=== PATIENT | male | born 1970 | race Caucasian/White ===

== ENCOUNTER 2022-05-12 11:49 | Outpatient (REF) | payer OTHER, SELFPAY ==
[2022-05-12 14:37] LABS: Appearance Urine Clear; Color Urine Yellow; Glucose Urine UA Negative (Negative); Leukocyte Esterase Urine Negative (Negative); Nitrite Urine Negative (Negative); PH 5.5 (5.0-9.0); Urine Blood Negative (Negative); Urine Ketones Negative (Negative); Urine Protein Negative (Neg-Trace)
[2022-05-12 14:40] LABS: Bacteria Urine None Seen (None Seen); Hyaline Casts Urine 0-2 /LPF (0-2); RBC Urine 0-2 /HPF (0-2); Squamous Epithelial Cell Urine 0-2 /HPF (0-2); WBC Urine 0-5 /HPF (0-5)
[2022-05-12 15:30] LABS: Prostate Specific Antigen 0.45 ng/mL (<0.05-4.0)
== END 2022-05-12 11:50 | disposition home or self-care (01) ==
LOC: HO.MANLDS 11:49
PROVIDERS: Visit Provider Physician Assistant
DX: N40.0 Benign prostatic hyperplasia without lower urinary tract symptoms (principal); R10.32 Left lower quadrant pain; Z12.5 Encounter for screening for malignant neoplasm of prostate
CPT/HCPCS: 36415; 81001; 84153; 87086

== ENCOUNTER 2024-02-28 18:18 | Outpatient (REF) | payer OTHER, SELFPAY | END 2024-02-28 18:19 | disposition home or self-care (01) | LOC: HO.MANLNP 18:18 | PROVIDERS: Visit Provider Physician Assistant | DX: Z13.89 Encounter for screening for other disorder (principal) | CPT/HCPCS: 87070; 87205 ==

== ENCOUNTER 2024-10-17 16:17 | Outpatient (REF) | payer OTHER, SELFPAY ==
--- OUTSIDE RECORDS SUMMARY | 2024-10-17 17:50 | XMS_ITS | Clinical Summary ---
Author Organization [facility] Address [address] [place] [address] Care Team Providers Care Business Transformation Analyst Name Role Phone Unavailable Primary Care Provider Unavailabl e Source Comments PLEASE NOTE, if this patient is a minor, it may be UNLAWFUL to discuss sensitive information that is contained in these records (such as FAMILY PLANNING, MENTAL HEALTH or SUBSTANCE ABUSE) with the minor patient's parent or other person without the patient's specific authorization.[facility] Allergies No known active allergies Medications atorvastatin (LIPITOR) 20 mg tablet 09/13/2023 Active losartan (COZAAR) 50 mg tablet 08/22/2023 Active neomycin-polymyx in B-dexameth (POLYDEX) 3.5 mg/g-10,000 unit/g-0.1 % ophthalmic ointment APPLY A SMALL RIBBON TO THE RIGHT LOWER LID THREE TIMES DAILY FOR 10 DAYS 04/16/2024 Active esomeprazole magnesium (NEXIUM) [address] capsule take 1 capsule by mouth once daily ON AN EMPTY STOMACH Active flu vacc [id number] 6mos up,PF, 60 mcg (15 mcg x 4)/0.5 mL syrg Fluarix Quad [id number] (PF) 60 mcg (15 mcg x 4)/0.5 mL IM syringe Active amoxicillin-pot clavulanate (AUGMENTIN) 875-125 mg per tabletIndication s:Skin infection Take 1 Tablet by mouth 2 (two) times daily 20 Tablet 05/04/2024 Active Immunizations Immunization Administration Dates Next Due Moderna COVID-19 Vaccine, re d cap blue label, 12+ Primary Series 11/11/2020,10/14/2020 Social History Tobacco Use Types Packs/Day Years Used Date Smoking Tobacco: Never Smokeless Tobacco: Never Tobacco Cessation:Counseling Given: Not Answered Social Connections Answer Date Recorded Connectedness 0 03/22/2024 Financial Resource Strain Answer Date R ecorded Financial Resource Strain 0 2023 Stress Answer Date Recorded Stress 0 11/13/2023 Physical Activity Answer Date Recorded Physical Activity 0 11/13/2023 Food Insecurity Answer Date Recorded Food 0 04/05/2024 Transportation Needs Answer Date Record ed Transportation 0 11/13/2023 Housing Stability Answer Date Recorded Housing 0 11/13/2023 Safety and Environment Answer Date Dajuan rded Safety 0 11/13/2023 Utilities Answer Date Recorded Utilities 0 11/13/2023 Employment Answer Date Recorded Stress 0 03/22/2024 Sex and Gender Information Value Date Recorded Sex Assigned at Male 05/04/2024 6:34 AM PDT Legal Sex Male 8:50 AM PDT Gender Identity Male 05/04/2024 6:34 AM PDT Sexual Orientation Straight 05/04/2024 6: 34 AM PDT Last Filed Vital Signs Vital Sign Reading Time Taken Comments Blood Pressure 129/86 05/04/2024 9:48 AM EDT Pulse 76 05/04/2024 9:48 AM EDT Temperature 37 ??C (98.6 ??F) 05/04/2024 9:48 AM EDT Respiratory Rate 16 05/04/2024 9:48 AM EDT Oxygen Saturation 94% 05/04/2024 9:48 AM EDT Inhaled Oxygen Concentration - - Weight - - Height - - Body Mass Index - - Plan of Treatment Health Maintenance Due Date Last Done Comments Anxiety Screening 1968 Hepatitis C Screening 1968 HIV Screening 1983 Imm-Hepatitis B (1 of 3 - 19 + 3-dose series) 1987 CT Colonography 2013 Colonoscopy 2013 Colorectal Cancer Screening 2013 FIT/gFOBT 2013 Fecal DNA 2013 Flexible Sigmoidoscopy 2013 Imm-DTaP/Tdap/Td (1 - Tdap) 05/02/2019 05/01/2019 [id number] ( season) 2024 04/16/2022, 06/23/2021, 11/11/2020, Additional history exists Imm-Influenza (#1) 2024 04/16/2022, 1 08/24/2020, 04/12/2020, Additional history exists Alcohol and Drug Screen 07/11/2024 Depression Annual Screen 07/11/2024 Lipid Screening 08/29/2024 08/29/2023 Hypertension Screening (#1) 05/04/2025 Tobacco Screening 05/04/2025 05/04/2024 Diabetes Screening 08/29/2026 08/29/2023, 0 01/27/2023, 01/27/2023 Imm-Zoster, Recombinant Completed 07/23/2022, 04/16 Insurance [facility] ([facility]) Member Subscriber Plan / Payer (Ef fective 2018-Present) Name:Mauricio Sargent Relation to Subscriber:Self Name:Mauricio Sargent Payer ID:[id number] Group ID:Not on file Type:Indemnity Address: [address] [place], [place] [id number]
--- OUTSIDE RECORDS SUMMARY | 2024-10-17 17:50 | XMS_ITS | Data Portability ---
Author Organization [facility], Home Service Address [address] [place] [address] Assessment No assessment recorded. Plan of Treatment Reminders Order Date Submit Date Provider Last Modified By Organization Details Last Modified Time Details Appointments FOLLOW UP 15 2024 04:00P GLO MONTEMAYOR Not available Not available Not available Lab CMP, serum or plasma 2024 025 [facility], [address] [place] [address], [id number], 10/17/2024 16:24:43 hemoglobi n A1c, QN, blood 2024 025 [facility], [address] [place] [address], [id number], 10/17/2024 16:24:44 CBC w/ auto diff 2024 025 [facility], [address] [place] [address], [id number], 10/17/2024 16:24:43 PSA, serum or plasma 2024 025 [facility], [address] [place] [address], [id number], 10/17/2024 16:24:43 urinalysi s, dipstick 2024 025 [facility], [address] [facility] [place], [address], 10/17/2024 16:23:30 urinalysi s complete, reflex culture 2024 025 [email or web address] [facility], [address] [place] [address], [id number], 10/17/2024 15:54:08 culture, skin 2023 024 [facility], [address] [place] [address], [id number], 03/02/2024 08:01:55 urinalysi s complete, reflex culture 2021 022 [facility], [address] [place] [address], [id number], 05/13/2022 12:42:43 PSA, serum or plasma 2021 [facility], [address] [place] [address], [id number], 05/13/2022 12:42:43 Referral None recorded. Procedures None recorded. Surgeries None recorded. Imaging CT, chest, w/wo contrast 2023 024 [email or web address] Not available 03/05/2024 08:42:27 XR, kidney + ureter + bladder 2021 022 [facility], [address] [place], [address], 05/12/2022 16:12:04 XR, lumbosacr al spine, 2 or 3 view 2021 022 [facility], [address] [place], [address], 05/12/2022 15:47:07 Medication Orders clotrimaz ole-betam ethasone 1 %-0.05 % topical cream 2023 025 ELYSIAN FIELDS [id number], [address] [place], [place], [id number], 10/17/2024 15:51:55 prednison e 10 mg tablet 2023 024 [id number], [address] [place], [place], [id number], 02/08/2024 14:10:31 Patient TargetsNo targets recorded. Patient InstructionsNo instructions recorded. Reason for Referral None Reported. Results Created Date Observation Date Name Description Value Unit Range Abnormal Flag Note LastModifiedBy Organization Detail LastModifiedTime 05/12/20 22 05/12/2022 XR, lumbo sacra l spine , 2 or 3 view No observ ation record ed. [facility] [address] [place], [address], 05/12/2022 17:01:52 05/12/20 22 05/12/2022 XR, kidne y + urete r + bladd er No observ ation record ed. [facility] [address] [place], [address], 05/12/2022 16:12:04 08/05/19 24 08/04/2023 , [facility] ardio gram No observ ation record ed. [facility] - [address], [address], 08/05/2023 14:10:02 01/05/20 24 01/03/2024 CT, angio gram, chest , w/ contr ast No observ ation record ed. [email or web address] [address], [address], 01/06/2024 10:41:10 04/16/2004/12/2024 CT, chest , w/wo contr ast No observ ation record ed. [email or web address] [address], [address], 04/16/2024 10:25:58 06/25/20 24 04/16/2024 CT, chest , w/o contr ast No observ ation record ed. [email or web address] [facility] Nuclear Department [address], [place], [address], 06/27/2024 16:26:22 07/27/19 25 07/26/2024 , echoc ardio gram No observ ation record ed. [facility] [place] [address] [address], [place], [address], 07/27/2024 08:57:36 Result Notes None recorded. Problems Name Problem SNOMED Code Status Onset Date Resolution Date Notes Provider Name and Address Organization Details Recorded Time Hemorrho ids 91629913 [facility] 9 14:34:12 Sleep apnea 97081504 Active 2018 Pepe Munoz DO [address] [place] [address], [address], [facility] [place] 9 15:56:25 Hypogona dism 93746330 Active 2018 Pepe Munoz DO [address] [place] [address], [address], [facility] 9 15:56:30 Low back pain 497808588 Active 2021 GLO JIM [address] [place] [address], [address], [facility] [place] 2 11:40:18 Left flank pain 125253559 Active 2021 GLO JIM [address] [place] [address], [address], [facility] [place] 2 11:41:00 Benign prostati c hyperpla chepe 338869015 Active 2021 GLO JIM [address] [place] [address], [address], [facility] [place] 2 11:42:54 Osteoart hritis 774499144 Active 2021 GLO JIM [address] [place] [address], [address], [facility] [place] 2 17:02:48 Contact dermatit is caused by urushiol from [facility] elvin 237008639 Active 2023 GLO JIM [address] [place] [address], [address], [facility] [place] 4 14:25:04 Nodule of lung 472101317 Active 2023 GLO JIM [address] [place] [address], [address], [facility] [place] 4 14:37:01 Tinea corporis 46057811 Active 2023 GLO JIM [address] [place] [address], [address], [facility] [place] 4 14:32:29 Multiple nodules of lung 235215720 Active 2023 GLO JIM [address] [place] [address], [address], [facility] 4 14:33:37 Impaired fasting glycemia 125883023 Active 2024 GLO JIM [address] [place] [address], [address], [facility] 5 16:13:40 Acute urinary tract infectio n 051022599 Active 2024 GLO JIM [address] [place] [address], [address], [facility] 5 16:19:51 Hemorrho ids 35069514 Completed 201707/19/2018 Lesly Bradley [facility] 9 14:34:12 Problem Notes None recorded. Procedures Surgical History Date Name Laterality Status Provider Name and Address Organization Details Recorded Time 9 Colonoscopy completed Lesly Bradley [facility] 07/14/2018 11:04:23 Imaging Results Imaging Date Name Status LastModified by Organization Details LastModified Time 05/12/2022 XR, lumbosacral spine, 2 or 3 view completed [facility] [address] [place], [address], 05/12/2022 17:01:52 05/12/2022 XR, kidney + ureter + bladder completed [facility] [address] [place], [address], 05/12/2022 16:12:04 08/04/2023 US, echocardiogram completed [facility] - [address], [address], 08/05/2023 14:10:02 01/03/2024 CT, angiogram, chest, w/ contrast completed [address], [address], 01/06/2024 10:41:10 04/12/2024 CT, chest, w/wo contrast completed [address], [address], 04/16/2024 10:25:58 04/16/2024 CT, chest, w/o contrast completed [address] Nuclear Department [address] [place] [address], [address], 06/27/2024 16:26:22 07/26/2024 US, echocardiogram completed [facility] [address] [place] [address], [address], 07/27/2024 08:57:36 Procedure Notes None recorded. Medical Equipment None Reported. Allergies No known drug allergies Medications Name Sig Start Date Stop Date Status Note LastModified by Organization Details LastModified Time Prescriptio n - Prior Authorizati on Request 04/10 completed Not Available Not Available Not Available losartan 50 mg tablet active Not Available Not Available No t Available prednisone 10 mg tablet 40 mg x 2 days, 30 mg x 2 days, 20 mg x 2 days, 10 mg x 2 days 02/07 completed Not Available Not Available Not Available Protonix 40 mg tablet,campbell yed release Take 1 tablet every day by oral route for 30 days. 05/05 completed Not Available Not Available Not Available atorvastati n 20 mg tablet active Not Available Not Available Not Available ibuprofen 800 mg tablet Take by oral route for 4 days. 05/19 completed Not Available Not Available Not Available tramadol 50 mg tablet 04/10 completed Not Available Not Available Not Available clotrimazol e-betametha sone 1 %-0.05 % topical cream APPLY TOPICALLY TO THE AFFECTED AND SURROUNDI NG AREAS TWICE DAILY IN THE MORNING AND IN THE EVENING FOR 2 WEEKS 10/17 completed Not Available Not Available Not Available losartan 25 mg tablet Take 1 tablet every day by oral route for 30 days. 01/08 completed Not Available Not Available Not Available diclofenac sodium 75 mg tablet,campbell yed release TAKE 1 TABLET BY MOUTH TWICE DAILY WITH MEALS 01/08 completed Not Available Not Available Not Available bisacodyl 5 mg tablet,campbell yed release active Not Available Not Available Not Available neomycin 3.5 mg/g-polymy kati B 10,000 unit/g-dexa meth 0.1 % eye oint APPLY A SMALL RIBBON TO THE RIGHT LOWER LID THREE TIMES DAILY FOR 10 DAYS 10/17 completed Not Available Not Available Not Available GaviLyte-G 236 gram-22.74 gram-6.74 gram-5.86 gram oral solution active Not Available Not Available Not Available testosteron e 10 mg/0.5 gram/actuat ion transdermal gel pump Apply 1 pump every day by transderm al route for 30 days. 04/10 completed Not Available Not Available Not Available Nexium 24HR 20 mg capsule,del ayed release take 1 capsule by mouth once daily ON AN EMPTY STOMACH active Not Available Not Available No t Available Fluarix Quad (PF) 60 mcg (15 mcg x 4)/0.5 mL IM syringe active Not Available Not Available N ot Available Afluria Qd (36 mos up)(PF)60 mcg (15 mcg x4)/0.5 mL IM syringe ADM 0.5ML IM UTD 05/19 completed Not Available Not Available Not Available Vitals Date Recorded Heart rate Oxygen saturation Oxygen saturation in Arterial blood by Pulse oximetry Systolic blood pressure Diastolic blood pressure Provider Name and Address Organization Details Last Updated DateTime 2 82 /min 96 % 96 % 156 mm[Hg] 92 mm[Hg] Rain Sabrinaelieser [facility] 2 11:29:36 Date Recorded Body height Body mass index (BMI) Body weight Heart rate Oxygen saturation Oxygen saturation in Arterial blood by Pulse oximetry Systolic blood pressure Diastolic blood pressure Provider Name and Address Organization Details Last Updated DateTime 4 182.88 cm 39.6 kg/m2 746105. 97 g 84 /min 93 % 93 % 148 mm[Hg] 84 mm[Hg] Tee Villegas [facility] 4 14:16:44 Date Recorded Body height Body mass index (BMI) Body weight Heart rate Oxygen saturation Oxygen saturation in Arterial blood by Pulse oximetry Systolic blood pressure Diastolic blood pressure Provider Name and Address Organization Details Last Updated DateTime 4 182.88 cm 39.6 kg/m2 256819. 97 g 74 /min 93 % 93 % 136 mm[Hg] 80 mm[Hg] Tee Villegas [facility] 4 14:11:27 Date Recorded Body height Body mass index (BMI) Body weight Heart rate Oxygen saturation Oxygen saturation in Arterial blood by Pulse oximetry Systolic blood pressure Diastolic blood pressure Provider Name and Address Organization Details Last Updated DateTime 4 182.88 cm 39.3 kg/m2 459678. 35 g 78 /min 95 % 95 % 126 mm[Hg] 86 mm[Hg] Zaira Choudhury [facility] 4 14:22:58 Date Recorded Body height Heart rate Oxygen saturation Oxygen saturation in Arterial blood by Pulse oximetry Systolic blood pressure Diastolic blood pressure Provider Name and Address Organization Details Last Updated DateTime 5 182.88 cm 95 /min 95 % 95 % 128 mm[Hg] 84 mm[Hg] Zaira Choudhury [facility] 5 16:03:09 Social History Question Answer Notes LastModified by Organizat ion Details LastModified Time Tobacco Smoking Status Never Smoker Not Available [facility] 05/13/2020 03:36:24 What Was The Date Of Your Most Recent Tobacco Screening? 10/17/2024 [email or web address] Information not available 10/17/2024 Sex: Unknown Functional Status None recorded. Mental Status None recorded. Family History Relationship Description Onset Age of this Age Resolved Age Notes LastModified by Organization Details LastModified Time Father Malignant neoplasm of urinary bladder [email or web address] Not available 2023 14:36:39 Medical History No medical history recorded. Immunizations Vaccine Type Date Status Note Provider Nam e and Address Organization Details Recorded Time Influenza, split virus, quadrivalent, PF 8 completed Lesly zavala [facility] 07/19/2018 14:25:41 Influenza, split virus, quadrivalent, preservative 0 completed Lesly zavala [facility] 05/19/2020 16:00:40 Past Encounters Encounter ID Performer Location Encounter Start Date Encounter Closed Date Diagnosis/Indication Diagnosis SNOMED-CT Code Diagnosis ICD10 Code Diagnosis Note [id number] [facility] [address] [place] [address] [place] [address] 05/05/2018 15:46:44 05/05/2018 16:38:20 Gastroesophageal reflux disease 433831131 K21.0 will double on nexium to twice aday and needs to had EGD will refer [id number] [facility] [address] [place] [address] 07/19/2018 14:22:01 07/19/2018 19:47:42 Obstructive sleep apnea syndrome 09951511 G47.33 heavy snore episodes of apnea feelings of chest heaviness Palpitations 56588973 R0 0.2 occurring usu at night but can sense them Fatigue 03475785 R53.83 Atypical chest pain 1025 [id number] [facility] [address] [facility], [place] [address] 09/20/2018 14:58:50 09/20/2018 15:59:07 Hypogonadism 35149936 E29.1 long discuss will try low dose of testost and use only 1 pump and see where he is if a prob he will stop and call will then order endocrine consult Sleep apnea 01159397 G47 .30 await cpap device and home unit [id number] Kenisha Gandara NP, S [facility] [address] [facility],[place] [address] 10/18/2018 15:16:30 10/18/2018 16:53:23 Viral gastroenteritis 605556640 A08.4 resolving [id number] Pepe Munoz DO [facility] [address] [facility],[place] [address] 04/10/2019 15:26:49 04/10/2019 15:49:16 Hypogonadism 65289330 E29.1 long discuss will try low dose of testost and use only 1 pump and see where he is if a prob he will stop and call will then order endocrine consult Sleep apnea 73193159 G47 .30 doing great and is feeling much better using cpap and now is on a dream [place] [id number] Pepe Munoz DO [facility] [address] [facility],[place] [address] 08/08/2019 11:53:19 08/08/2019 14:38:51 Physical deconditioning 9772705133 9102 R68.89 Gained 20+ lb over last 8 mo Heart racing after physical exercise Palpitations 11038863 R0 0.2 No SOB, lightheade d, resolved quickly Will check EKG and event monitor Continue normal daily events Acute laryngitis 1902603 J04.0 viral - will call if worse [id number] GLO JIM [facility] [address] [facility],[place] [address] 11/07/2019 10:20:04 11/07/2019 11:34:12 Contact dermatitis 01916540 L25.9 pt was doing yard work and was in contact with possible poison elvin now spread from bilateral fingers to left leg and eyelids will send in script for prednisone and monitor pt has been on prednisone before for this exact reason advised pt to be careful will on prednisone due to it's immunosupp ressive properties the pt understand s this [id number] Pepe Munoz DO [facility] [address] [facility],[place] [address] 05/19/2020 15:57:05 05/19/2020 16:29:40 Hypertensive disorder 31455363 I10 doing well and is not having any issue with the losartan Ascending aorta dilatation 760472046 I77.810 he is at 4.3 and will be getting echo in aug with cardiology and will see cardio then [id number] GLO JIM [facility] [address] [facility] [address],[place] [address] 05/12/2022 11:20:32 05/12/2022 12:33:28 Low back pain 534199384 M54.59 set ups with XRs and urinalysis Left flank pain 13724952 9 R10.32 set up with XRs Benign pro static hyperplasia 527094868 N40.0 will recheck is PSA levels [id number] GLO JIM [facility] [address] [facility] [address],[place] [address] 01/09/2024 13:56:24 01/10/2024 14:23:41 Depression screening 118084977 Z13.31 0 Contact de rmatitis caused by urushiol from [facility] elvin 646858346 L23.7 the patient needs pred taper [id number] GLO JIM [facility] [address] [place] [address] [address] [address] 02/08/2024 14:04:57 02/13/2024 08:11:41 Hypogonadism 39968407 E29.1 stable Nodule of lung 869695053 R91.1 stable [id number] GLO JIM [facility] [address] [facility] [address] 02/28/2024 14:14:46 02/28/2024 14:53:23 Tinea corporis 49099202 B35.4 will set up with cultureand send out to r/o staph infection Multiple n odules of lung 141536314 R91.8 will set up with [address] to make sure nodules are benign [id number] GLO JIM [facility] [address] [facility] [address] 10/17/2024 15:45:30 10/17/2024 16:22:42 Acute urinary tract infection 146536562 N39.0 fu with lab work testing for glucose Impaired f asting glycemia 638967035 R73.01 Health Concerns Section Related Observation LastModified by Organization Detai ls LastModified Time None Recorded Concern Status LastModified by Organization Details LastModified Time None Recorded Advance Directives Directive None Recorded Payers Encounter Date Sequence Insurance Name Policy Number Policy Horner Covered Member ID Horner Member ID Guarantor Name 05/12/2022 1 [facility] [id number] 1 Aime Zaynab Leavens [id number] Aime Zaynab Leavens 01/09/2024 1 [facility] [id number] 1 Aime K Leavens [id number] Aime K Leavens 02/08/2024 1 [facility] [id number] 1 Aime K Leavens [id number] Aime K Leavens 02/28/2024 1 [facility] [id number] 1 Aime K Leavens [id number] Aime K Leavens 10/17/2024 1 [facility] [id number] 1 Aime K Leavens [id number] Aime Zaynab Leavens Notes Date Note Type Note Provider Name a ca Address Organization Details Recorded Time 2 text/html c/o left sided back pain probable MSK in nature but will do a r/o kidney stone, UTI work upthe patient reports that for the past few days he has had left sided flank back, more posteriorlyhurts with external rotation of the hip and twisting toward the right sidealso occasionally with going from sitting and standing the patient agreed to a work up of his backand a r/o for a kidney stone or UTI also needs a PSA done as he hasn't had one done recentlywill fu with his XRs and urine sample comes in GLO JIM [address] [place] [address], [place], [address], [facility] 05/12/2022 11:48:48 4 text/html c/o poison elvin, rash 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, was clothed, but ended up developing notable red, small bumps on bilateral upper arms the patient tired calamine lotion, cortisone-10, and an anti-histamine without luckhas started to spread up his arms to his shoulders very pruritic vesiclesno discharge or leaking at presentno signs of infection hx of recurrent issues with poison elvin exposure due to his job start on prednisone depression screening: The patient denies little pleasure in activities they find enjoyable, feeling depressed, difficulties sleeping, feeling tired or having little energy, change in appetite, feeling guilty, overwhelmed or unmotivated. The patient denies suicidal ideation, thoughts of hurting themselves or others. Their mood is appropriate, they show good judgement and clear understanding of the conversation. They are orientated to time, place and person. They are not expressing any concerning thoughts or actions that would need further investigation and treatment for mental health. 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, no intervention needed the patient CTA incidentally picked pulmonary nodules but based on the criteria does not require intervention or f/u with additional imaging no symptoms suggestive of pulmonary conditionwill just have patient monitor his symptoms will continue to fu with video technician GLO JIM [address] [place], [address], [facility] [place] 02/08/2024 14:39:19 4 text/html c/o rash has a papular spot on the right shincentral clearing, dry skinperfectly circularlooks like ring wormdoes wear boots a lot and pants for workwill start on topical, also take a skin culture to r/o any other causes wanted to double check the nodules, suggested dedicated imaging GLO JIM [address] [place], [address], [facility] [place] 02/28/2024 14:44:32 5 text/html c/o urinary issues patient has a sig amount of glucose in his urinenotes increased thirst and urination hx of IFG, tried treating with lifestyles changes previouslynoted on previous blood work patient had elevated sugar recommended updated a1c and PSA patient agrees 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
--- OUTSIDE RECORDS SUMMARY | 2024-10-17 17:50 | XMS_ITS | Continuity of Care Document ---
Author Organization [facility] Internal Medicine, [facility] Address [address] [place] [address] [place] [address] Assessment No assessment recorded. Plan of Treatment Reminders Order Date Submit Date Provider Last Modified By Organization Details Last Modified Time Details Appointments FOLLOW UP 15 2024 04:00P GLO MONTEMAYOR Not available Not available Not available Lab CMP, serum or plasma 2024 025 [facility], [address] [place] [address], [id number], 10/17/2024 16:24:43 hemoglobi n A1c, QN, blood 2024 025 [facility], [address] [place] [address], [id number], 10/17/2024 16:24:44 CBC w/ auto diff 2024 025 [facility], [address] [place] [address], [id number], 10/17/2024 16:24:43 PSA, serum or plasma 2024 025 [facility], [address] [place] [address], [id number], 10/17/2024 16:24:43 urinalysi s, dipstick 2024 025 [facility], [address], [address], [place], [address], 10/17/2024 16:23:30 urinalysi s complete, reflex culture 2024 025 [facility], [address] [place] [address], [place], [id number], 10/17/2024 15:54:08 Referral None recorded. Procedures None recorded. Surgeries None recorded. Imaging None recorded. Medication Orders None recorded. Patient TargetsNo targets recorded. Patient InstructionsNo instructions recorded. Reason for Referral None Reported. Results Created Date Observation Date Name Description Value Unit Range Abnormal Flag Note LastModifiedBy Organization Detail LastModifiedTime Result Notes None recorded. Problems Name Problem SNOMED Code Status Onset Date Resolution Date Notes Provider Name and Address Organization Details Recorded Time Hemorrho ids 81105139 [facility] 9 14:34:12 Sleep apnea 29460144 Active 2018 Pepe Munoz DO [address] [place] [address], [address], [facility] 9 15:56:25 Hypogona dism 49697911 Active 2018 Pepe Munoz DO [address] [place] [address], [address], [facility] 9 15:56:30 Low back pain 076431157 Active 2021 GLO JIM [address] [place] [address], [address], [facility] 2 11:40:18 Left flank pain 206285481 Active 2021 GLO JIM [address] [place] [address], [address], [facility] Internal [facility] 2 11:41:00 Benign prostati c hyperpla chepe 150817984 Active 2021 GLO JIM [address] [place], [address], [facility] 2 11:42:54 Osteoart hritis 896187437 Active 2021 GLO JIM [address] [place], [address], [facility] 2 17:02:48 Contact dermatit is caused by urushiol from [facility] elvin 983822813 Active 2023 GLO JIM [address] [place] [address], [address], [facility] 4 14:25:04 Nodule of lung 059156764 Active 2023 GLO JIM [address] [place] [address], [address], [facility] 4 14:37:01 Tinea corporis 33320762 Active 2023 GLO JIM [address] [place] [address], [address], [facility] Medicine 4 14:32:29 Multiple nodules of lung 602490480 Active 2023 GLO JIM [address] [place] [address], [address], [facility] 4 14:33:37 Impaired fasting glycemia 233124215 Active 2024 GLO JIM [address] [place] [address], [address], [facility] Medicine 5 16:13:40 Acute urinary tract infectio n 487824043 Active 2024 GLO JIM [address] [place] [address], [address], [facility] Medicine 5 16:19:51 Hemorrho ids 52857926 Completed 201707/19/2018 Lesly zavala [facility] 9 14:34:12 Problem Notes None recorded. Procedures Surgical History Date Name Laterality Status Provider Name and Address Organization Details Recorded Time 9 Colonoscopy completed Lesly Bradley [facility] 07/14/2018 11:04:23 Imaging Results None recorded. Procedure Notes None recorded. Medical Equipment None [...] Not Available Not Available Vitals Date Recorded Body height Heart rate Oxygen saturation Oxygen saturation in Arterial blood by Pulse oximetry Systolic blood pressure Diastolic blood pressure Provider Name and Address Organization Details Last Updated DateTime 5 182.88 cm 95 /min 95 % 95 % 128 mm[Hg] 84 mm[Hg] Zaira Rogers [facility] 5 16:03:09 Social History Question Answer Notes LastModified by Organizat ion Details LastModified Time Tobacco Smoking Status Never Smoker Not Available [facility] 05/13/2020 03:36:24 What Was The Date Of [...] Influenza, split virus, quadrivalent, PF 8 completed AMALIA Chamorro [facility] 07/19/2018 14:25:41 Influenza, split virus, quadrivalent, preservative 0 completed AMALIA Chamorro [facility] 05/19/2020 16:00:40 Past Encounters Encounter ID Performer Location Encounter Start Date Encounter Closed Date Diagnosis/Indication Diagnosis SNOMED-CT Code Diagnosis ICD10 Code Diagnosis Note [id number] GLO JIM [facility] [address] [facility],[place] [address] 10/17/2024 15:45:30 10/17/2024 16:22:42 Acute urinary tract infection 667252641 N39.0 fu with lab work testing for glucose Impaired f asting glycemia 526209419 R73.01 Health Concerns Section Related Observation LastModified by Organization Detai ls LastModified Time None Recorded Concern Status LastModified by Organization Details LastModified Time None Recorded Payers Encounter Date Sequence Insurance Name Policy Number Policy Horner Covered Member ID Horner Member ID Guarantor Name 10/17/2024 1 [facility] [id number] 1 Aime Sargent [id number] Aime Sargent Notes Date Note Type Note Provider Name a nd Address Organization Details Recorded Time 5 text/html c/o urinary issues patient has [...] a medication to treat it GLO JIM [address] [place] [address], [place], [address], AMALIA Osei [facility] 10/17/2024 16:20:03
[2024-10-17 18:21] LABS: MANUAL DIFF FLAG NO
[2024-10-17 18:29] LABS: Basophils Absolute Auto 0.1 X10*3/uL (0.0-0.2); Basophils Percent Auto 0.7 % (0-2); Eosinophils Absolute Auto 0.2 X10*3/uL (0.0-0.4); Eosinophils Percent Auto 1.4 % (0-4); Hematocrit 44.7 % (42.0-52.0); Hemoglobin 15.6 g/dl (14.0-18.0); Imm Gran Abs Auto 0.05 X10*3/uL (0.00-0.03); Imm Gran Pct Auto 0.5 % (0.0-0.4); Lymphocytes Absolute Auto 3.1 X10*3/uL (1.2-4.9); Lymphocytes Percent Auto 29.8 % (20-40); Mean Corpuscular HGB Conc 34.9 g/dl (31.0-36.0); Mean Corpuscular Hemoglobin 28.3 pg (27.0-33.0); Mean Platelet Volume 11.5 fL (9.4-12.4); Monocytes Absolute Auto 0.9 X10*3/uL (0.1-1.2); Monocytes Percent Auto 8.3 % (2-11); Neutrophils Absolute Auto 6.2 x10*3/uL (2.0-8.3); Neutrophils Percent Auto 59.3 % (45-73); Platelet Count 267 X10*3/uL (160-400); Red Blood Count 5.52 X10*6/uL (4.60-5.80); Red Cell Distribution Width 12.6 % (11.0-16.0); White Blood Count 10.5 X10*3/uL (4.8-10.8)
[2024-10-17 18:33] LABS: Appearance Urine Clear; Color Urine Yellow; Glucose Urine UA >=1000 mg/dL (Negative); Specific Gravity - Urine >= 1.030 (1.005-1.025); Urine Blood Negative (Negative); Urine Protein Trace mg/dL (Neg-Trace)
[2024-10-17 18:34] LABS: Leukocyte Esterase Urine Negative (Negative); Nitrite Urine Negative (Negative); UMIC TRIGGER UACC YES; Urine Ketones Negative (Negative)
[2024-10-17 18:39] LABS: Bacteria Urine None Seen (None Seen); Hyaline Casts Urine 0-2 /LPF (0-2); RBC Urine 0-2 /HPF (0-2); Squamous Epithelial Cell Urine 0-2 /HPF (0-2); WBC Urine 0-5 /HPF (0-5)
[2024-10-17 19:04] LABS: Albumin Level 4.6 g/dL (3.5-5.0); Alkaline Phosphatase 170 U/L (39-117); Anion Gap 13 (12-20); Aspartate Amino Transferase 80 U/L (5-37); Bilirubin Total 0.4 mg/dL (0.0-1.0); Blood Urea Nitrogen 17 mg/dL (9-16); Calcium 9.7 mg/dL (8.4-10.2); Carbon Dioxide 22 mmol/L (22-29); Chloride 106 mmol/L (96-108); Estimated Glomerular Filt Rate > 60; Glucose Random 323 mg/dL (60-115); Potassium 4.1 mmol/L (3.3-5.1); Sodium 137 mmol/L (135-145); Total Protein 7.7 g/dL (6.5-8.0)
[2024-10-17 19:22] LABS: Prostate Specific Antigen 0.48 ng/mL (<0.05-4.0)
[2024-10-17 20:02] LABS: Alanine Aminotransferase 127 U/L (0-40)
[2024-10-18 06:34] LABS: Estimated Average Glucose 258 mg/dL; Hemoglobin A1C 380.8167 umol/L; Hemoglobin A1c % 10.6 % (<6.0); Total Hemoglobin (HGBA1C) 4117.8303 umol/L
== END 2024-10-17 16:18 | disposition home or self-care (01) ==
LOC: HO.MANLDS 16:17
PROVIDERS: Visit Provider Physician Assistant
DX: N39.0 Urinary tract infection, site not specified (principal); Z13.89 Encounter for screening for other disorder
CPT/HCPCS: 36415; 80053; 81001; 83036; 84153; 85025

== ENCOUNTER 2025-01-22 09:07 | Outpatient (REF) | payer OTHER, SELFPAY ==
--- OUTSIDE RECORDS SUMMARY | 2025-01-22 09:29 | XMS_ITS | Clinical Summary ---
Author Organization [facility] Address [address] [place] [address] Care Team Providers Care Rv Mechanic Name Role Phone Unavailable Primary Care Provider [...] ON AN EMPTY STOMACH Active flu vacc [id number] 6mos up,PF, 60 mcg (15 mcg x 4)/0.5 mL syrg Fluarix Quad 8511-6986 (PF) 60 mcg (15 mcg x 4)/0.5 [...] 76 05/04/2024 9:48 AM EDT Temperature 37 C (98.6 F) 05/04/2024 9:48 AM EDT Respiratory Rate 16 [...] 2013 Fecal DNA 2013 Flexible Sigmoidoscopy 2013 Imm-Pneumococcal 50+ (1 of 1 - PCV) 2018 Imm-DTaP/Tdap/Td (1 - Tdap) 05/02/2019 05/01/2019 [id number] () 03/11/2024 04/16/2022, 06/23/2021, 11/11/2020, Additional history exists Alcohol and Drug Screen 07/11/2024 Depression Annual Screen 07/11/2024 Lipid Screening 08/29/2024 08/29/2023 Imm-Influenza (#1) 2025 04/16/2022, 1 08/24/2020, 04/12/2020, Additional history exists Hypertension Screening (#1) 05/04/2025 Tobacco Screening 05/04/2025 05/04/2024 Diabetes Screening 08/29/2026 08/29/2023, 0 01/27/2023, 01/27/2023 Imm-Zoster, Recombinant Completed 07/23/2022, 04/16 Insurance [employer] ([facility]) Member Subscriber Plan / Payer (Ef fective 2018-Present) Name:Mauricio Sargent Relation to Subscriber:Self Name:Mauricio Sargent Payer ID:[id number] Group ID:Not on file Type:Indemnity Address: [address] [place] [id number]
[2025-01-22 13:51] LABS: MANUAL DIFF FLAG NO
[2025-01-22 14:04] LABS: Hematocrit 42.4 % (42.0-52.0); Hemoglobin 14.1 g/dl (14.0-18.0); Imm Gran Abs Auto 0.04 X10*3/uL (0.00-0.03); Imm Gran Pct Auto 0.4 % (0.0-0.4); Lymphocytes Absolute Auto 2.9 X10*3/uL (1.2-4.9); Mean Corpuscular HGB Conc 33.3 g/dl (31.0-36.0); Mean Corpuscular Hemoglobin 28.4 pg (27.0-33.0); Mean Corpuscular Volume 85.5 fL (80.0-98.0); NRBC Abs Auto 0.000 X10*3/uL (0.0-0.012); NRBC Pct Auto 0.0 /100WBC (0.0-0.2); Platelet Count 261 X10*3/uL (160-400); Red Blood Count 4.96 X10*6/uL (4.60-5.80); White Blood Count 9.0 X10*3/uL (4.8-10.8)
[2025-01-22 14:15] LABS: Hemoglobin A1C 171.7327 umol/L; Total Hemoglobin (HGBA1C) 3634.2327 umol/L
[2025-01-22 14:36] LABS: Alanine Aminotransferase 33 U/L (0-40); Albumin Level 4.7 g/dL (3.5-5.0); Alkaline Phosphatase 117 U/L (39-117); Anion Gap 13 (12-20); Aspartate Amino Transferase 25 U/L (5-37); Blood Urea Nitrogen 15 mg/dL (9-16); Calcium 9.5 mg/dL (8.4-10.2); Carbon Dioxide 26 mmol/L (22-29); Chloride 109 mmol/L (96-108); Estimated Glomerular Filt Rate > 60; Potassium 4.2 mmol/L (3.3-5.1); Sodium 144 mmol/L (135-145); Total Protein 7.1 g/dL (6.5-8.0)
== END 2025-01-22 09:08 | disposition home or self-care (01) ==
LOC: HO.MANLDS 09:07
PROVIDERS: Visit Provider Physician Assistant
DX: E11.9 Type 2 diabetes mellitus without complications (principal)
CPT/HCPCS: 36415; 80053; 83036; 85025

== ENCOUNTER 2025-05-07 08:13 | Outpatient (REF) | payer OTHER, SELFPAY ==
--- OUTSIDE RECORDS SUMMARY | 2025-05-07 08:41 | XMS_ITS | Clinical Summary ---
Author Organization [facility] Address [address] [place] [address] Phone Care Team Providers Care Supervisor Tank Storage Name Role Phone Pepe Munoz Primary Care Provider [phone] Allergies No known active allergies Medications atorvastatin (LIPITOR) 20 MG tabletIndicatio ns:Medication refill Take 1 tablet (20 mg total) by mouth daily. 90 tablet 3 5 08/09/19 26 Active metFORMIN (GLUCOPHAGE-XR) 500 MG 24 hr tablet Take 500 mg by mouth daily. 5 Active losartan (COZAAR) 50 MG tabletIndicatio ns:Medication refill TAKE 1 TABLET(50 MG) BY MOUTH DAILY 90 tablet 3 5 Active losartan (COZAAR) 50 MG tabletIndicatio ns:Medication refill TAKE 1 TABLET(50 MG) BY MOUTH DAILY 90 tablet 3 4 05/02/20 25 Discontinued Active Problems Problem Noted Date Diagnosed Date Other hyperlipidemia 08/22/2023 Assessment & Plan (01/24/2025 3:46 PM EDT): I have ordered a lipid panel. He will remain on atorvastatin 20 mg daily. He has lost 40 pounds. He has cleaned up his diet. He is encouraged to exercise. He is also on metformin for his diabetes his hemoglobin A1c is being by PCP. Assessment & Plan (01/24/2024 3:39 PM EDT): Continue atorvastatin 20 mg daily. Palpitations 03/11/2020 Overview (10/07/2020): Has occasional palpitations but these are nontroublesome to him. He is on losartan 25 mg daily. He was tested for sleep apnea and now uses a CPAP machine which he states has improved his palpitations. Additionally he is losing weight and continues to do so and was congratulated on the weight that he has lost and encouraged to continue with weight loss. Assessment & Plan (01/24/2025 3:46 PM EDT): Denies palpitations at this time. Assessment & Plan (01/24/2024 3:38 PM EDT): Blood pressure is well-controlled today 120/70. He is on losartan 50 mg daily which she will remain on without change. Assessment & Plan (10/07/2020 3:54 PM EDT): Has occasional palpitations but these are nontroublesome to him. He is on losartan 25 mg daily. He was tested for sleep apnea and now uses a CPAP machine which he states has improved his palpitations. Additionally he is losing weight and continues to do so and was congratulated on the weight that he has lost and encouraged to continue with weight loss. He states he no longer drinks energy drinks and this is also likely have helped. Sinus tachycardia 03/11/2020 Assessment & Plan (01/24/2024 3:39 PM EDT): Denies any sinus tachycardia at this time Atrioventricular block, Mobitz type 1, Wenckebac h 03/11/2020 Ascending aorta dilation 03/11/2020 Overview (10/07/2020): Ascending aorta dilatation is stable measuring 3.8 cm. We will continue to get yearly echocardiograms. He will need transfer of care to another inserter as Dr. Olsen has left the practice recommended that he follow-up with Dr. Isaac Assessment & Plan (01/24/2025 3:46 PM EDT): Is stable and on most recent echocardiogram there is been no significant change. Will repeat his Medicare. Assessment & Plan (01/24/2024 3:40 PM EDT): Echocardiogram previously showed his dilated ascending aorta was measuring 4.9 cm. He did undergo a CT scan of his chest which showed his descending aorta measuring at 4.5 cm.There were no calcifications seen in his coronary arteries on his CT angio chest. Will continue to monitor with an echocardiogram in another year. He is encouraged to lose weight. Assessment & Plan (10/07/2020 3:54 PM EDT): Ascending aorta dilatation is stable measuring 3.8 cm. We will continue to get yearly echocardiograms. He will need transfer of care to another inserter as Dr. Olsen has left the practice recommended that he follow-up with Dr. Isaac Encounters Date Type Department Care Team Description 05/01/2025 Refill [facility] [address] [place] [address] 3rd Floor, [address] [place] [address] Hosea Isaac MD Medication Refill from Last 3 Months Immunizations Immunization Administration Dates Next Due Influenza Quadrivalent Preservative Free IM 06/11 Influenza Quadrivalent w/ Preservative IM 2019 Influenza, Unspecified Formulation 05/06/2009 Td (adult) 5 Lf Tetanus Toxoid, PF, Adsorbed Social History Tobacco Use Types Packs/Day Years Used Date Smoking Tobacco: Never Smokeless Tobacco: Never Tobacco Cessation:Counseling Given: Not Answered Education Answer Date Recorded Are you interested in more education? Not on jimenez e 11/05/2022 Are you concerned about learning? Not on file 11/05/2022 No 11/05/2022 No 11/05/2022 Digital Access Answer Date Recorded No 12/04/2022 No 12/04/2022 Reliable internet access at home? Not on file 12/04/2022 Device with a working camera? Not on file Sex and Gender Information Value Date Recorded Sex Assigned at Not on file Legal Sex Male 9:37 PM EDT Gender Identity Not on file Sexual Orientation Not on file Last Filed Vital Signs Vital Sign Reading Time Taken Comments Blood Pressure 110/88 01/24/2025 3:14 PM EDT Pulse 75 01/24/2025 3:14 PM EDT Temperature 36.6 C (97.9 F) 05/01/2019 6:43 PM EDT Respiratory Rate - - Oxygen Saturation 95% 01/24/2025 3:14 PM EDT Inhaled Oxygen Concentration - - Weight 119.3 kg (263 lb) 01/24/2025 3:14 PM EDT Height 182.9 cm (6' 0.01 ) 01/24/2025 3:14 PM ED T Body Mass Index 35.66 01/24/2025 3:14 PM EDT Plan of Treatment Upcoming Encounters Date Type Department Care Team (Late st Contact Info) Description 01/24/2025 Procedure Pass [facility] [address] [place] [address] 07/26/2025 2:00 PM EST Appointment Echo [facility] [address] [place] [address] Janette Johnson DNP [address] [place] [address], [address] [address] 01/24/2026 2:30 PM EDT Office Visit [facility] [address] [place] [address] [address] Floor, [address] [place] [address] Janette Johnson DNP [address] [place] [address], [address] [address] Health Maintenance Due Date Last Done Comments DEPRESSION SCREENING 1980 HEPATITIS C SCREENING 1986 HIV ONE-TIME SCREENING (18-6 5 YEARS) 1986 COLOGUARD 2013 COLONOSCOPY 2013 COLORECTAL CANCER SCREENING 2013 FIT TEST 2013 FOBT 2013 SIGMOIDOSCOPY 2013 VIRTUAL COLONOSCOPY 2013 PNEUMOCOCCAL VACCINES (50+ years) (1 of 1 - PCV) 2018 ZOSTER VACCINES (1 of 2) 2018 CREATININE LEVEL 08/29/2024 08/29/2023, 01/27/2023 POTASSIUM LEVEL 08/29/2024 08/29/2023, 01/27/2023 INFLUENZA VACCINE (#1) 2025 0, 07/07/2018, 05/06/2009 COVID-19 VACCINE (1 - 2024-2 6 season) 2025 SCREENING FOR DIABETES 08/29/2026 08/29/2023 LIPID PANEL 08/29/2028 08/29/2023, 01/27/2023 Adult Td,Tdap Booster 05/01/2029 05/01/2019 RSV VACCINE (1 - 1-dose 75+ series) 2043 SMOKING STATUS SCREENING (On ce After 26 Yrs) Completed 01/24/2025 HEPATITIS A VACCINES Aged Out No long er eligible based on patient's age to complete this topic HIB VACCINES Aged Out No longer eligi ble based on patient's age to complete this topic MENINGOCOCCAL VACCINES (ACWY) Aged Out No longer eligible based on patient's age to complete this topic MENINGOCOCCAL VACCINES (B) Aged Out N o longer eligible based on patient's age to complete this topic Medical Devices Not on file Procedures Procedure Name Priority Date/Time Associated Diagnosis Comments LIPID PANEL Routine 08/29/2023 8:23 AM EST Other hyperlipidemia COMPREHENSIVE METABOLIC PANEL Routine 08/29/2023 8:23 AM EST Palpitations Ascending aorta dilation Other hyperlipidemia from Last 3 Months or Most Recently Relevant to Health Maintenance Results * (ABNORMAL) Comprehensive metabolic panel (08/29/2023 8:23 AM EST) SODIUM 139 133 - 146 mmol/L [facility] POTASSIUM 4.7 3.3 - 5.1 mmol/L [facility] CHLORIDE 103 96 - 108 mmol/L [facility] CO2 26 21 - 35 mmol/L [facility] BUN 15 6 - 19 mg/dL [facility] CREATININE 1.00 0.5 - 1.5 mg/dL [facility] GLUCOSE 160(H) 70 - 99 mg/dL [facility] ALBUMIN 4.4 3.9 - 4.8 g/dL [facility] TOTAL PROTEIN 6.8 6.5 - 8.0 g/dL [facility] CALCIUM 9.3 8.4 - 10.3 mg/dL [facility] ALKALINE PHOSPHATASE 116 39 - 117 U/L [facility] TOTAL BILIRUBIN 0.6 0.0 - 1.2 mg/dL [facility] AST 59(H) 0 - 37 U/L [facility] ALT 94(H) 0 - 40 U/L [facility] GLOBULIN 2.4 1 - 4.8 g/dL [facility] EGFR 89 >59 mL/min/1.7 3m2 [facility] Comment:Estimated glomerular filtration rate calculated using the CKD-EPI refit equation. ANION GAP 15 10 - 20 mmol/L [facility] Blood 08/29/2023 8:23 AM EST 08/29/2023 8:26 AM EST us Hosea Isaac MD LAB BLOOD ORDERABLES Final Result [address] [id number] * (ABNORMAL) Lipid panel (08/29/2023 8:23 AM EST) HDL 30 mg/dL [facility] Comment: Interpretation <40 mg/dL: Low HDL cholesterol (major risk factor for CHD) Greater than or equal to 60 mg/dL: High HDL cholesterol ( negative risk factor for CHD) HDL - cholesterol is affected by a number of factors, e.g. smoking, excerise, hormones, sex and age. CHOLESTEROL 170 0 - 240 mg/dL [facility] TRIGLYCERIDES 154 30 - 160 mg/dL [facility] LDL 109 50 - 129 mg/dL [facility] Comment: LDL levels in terms of risk for coronary heart disease: <100 mg/dL: Optimal 100-129 mg/dL: Near or above optimal 130-159 mg/dL: Borderline high 160-189 mg/dL: High >190 mg/dL: Very High CARDIAC RISK RATIO 5.7(H) 3.4 - 5.0 C [facility] Blood 08/29/2023 8:23 AM EST 08/29/2023 8:26 AM EST us Hosea Isaac MD LAB BLOOD ORDERABLES Final Result [address] [address] from Last 3 Months or Most Recently Relevant to Health Maintenance Insurance Member Subscriber Plan / Payer (Ef fective 2016-Present) Name:Aime Pathak Relation to Subscriber:Self Name:AIME PATHAK Payer ID:Not on file Type:HMO Address: [place] [id number] [place], [place] [address] [place], [place] [address] [place], [place] [address] [place] [address] Care Teams Supervisor Tank Storage Relationship Specialty Start Date End Date EwaPepe ruiz DO Roberto [email or web address] PCP - General Internal Medicine 07/14/18 Additional Source Comments The information contained in this document represents components of the legal health record. It is not the complete legal health record.[facility]
--- OUTSIDE RECORDS SUMMARY | 2025-05-07 08:41 | XMS_ITS | Encounter Summary ---
Author Organization [facility] Address [address] [address] Phone Care Team Providers Care Sales Operations Consultant Name Role Phone Pepe Munoz Primary Care Provider [phone] Encounter Details Date Type Department Care Team (Late st Contact Info) Description 08/22/2023 Procedure Pass [facility], Ct Scan - [address] [address] Social History Tobacco Use Types Packs/Day Years Used Date Smoking Tobacco: Never Smokeless Tobacco: Never Education Answer Date Recorded Are you interested [...] on file Sexual Orientation Not on file documented as of this encounter Plan of Treatment Upcoming Encounters Date Type Department Care Team (Late st Contact Info) Description 01/24/2025 Procedure Pass [facility] [address] [place] [address] 07/26/2025 2:00 PM EST Appointment [facility] [address] [place] [address] Janette Johnson, [facility] [address] [facility], [address] [place] [address] [email or web address] 01/24/2026 2:30 PM EDT Office Visit [facility] [address] [facility] 3rd Floor, [address] [place] [address] Janette Johnson, [facility] [address] [facility], [address] [place] [address] documented as of this encounter Visit Diagnoses Not on filedocumented in this encounter Care Teams Sales Operations Consultant Relationship Specialty Start Date End Date Pepe Munoz DO PCP - General Internal Medicine 07/14/18 documented as of this encounter Additional Source Comments The information contained in this document represents components of the legal health record. It is not the complete legal health record.[facility]
--- OUTSIDE RECORDS SUMMARY | 2025-05-07 08:41 | XMS_ITS | Encounter Summary ---
Author Organization [facility] Address [address] [facility] [address] [place] [address] Phone Care Team Providers Care Traffic Engineering Technician Name Role Phone Maria R October DEEPAK Primary Care Provider [phone] Pepe Munoz DO Primary Care Provider [phone] Encounter Details Date Type Department Care Team (Late st Contact Info) Description 06/13/2017 Ancillary Orders Virtual Department [address] [place] [address] Maria ROctoberDEEPAK [address] [place] [address] [email or web address] Chronic heartburn; Chest pain, unspecified type Social History Tobacco Use Types Packs/Day Years Used Date Smoking Tobacco: Never Assessed Sex and Gender Information Value Date Recorded Sex Assigned at Not on file Legal Sex Male 9:37 PM EDT Gender Identity Not on file Sexual Orientation Not on file documented as of this encounter Plan of Treatment Upcoming Encounters Date Type Department Care Team (Late st Contact Info) Description 01/24/2025 Procedure Pass Echo Lab [address] [place] [id number] 07/26/2025 2:00 PM EST Appointment Echo Lab [address] [place] [address] Janette Johnson, DNP [address] [facility], [address] [place] [address] 01/24/2026 2:30 PM EDT Office Visit [facility] [address] [facility] 3rd Floor, [address] [place] [address] Janette Johnson, SUMMER [address] [facility], [address] [place] [address] documented as of this encounter Results * FL UGI SERIES DOUBLE CONTRAST (07/18/2017 8:43 AM EST) Anatomical Region Laterality Modality Abdomen Radiographic Ivory ging 07/18/2017 9:08 AM EST Impressions 07/18/2017 9:18 AM EST Tiny sliding-type hiatal hernia. Small duodenal diverticulum. Both are likely clinically insignificant. No other significant abnormalities on upper GI series. FLUOROSCOPY TIME: 1 min. 44 sec; 26 IMAGES/FRAMES POS - [id number] Narrative 07/18/2017 9:18 AM EST HISTORY: Pain, history of a hiatal hernia. EXAM: Biphasic upper GI series. COMPARISON: CT abdomen/pelvis 08/07/2009. Report from upper GI series dated 12/14/2004 reviewed. FINDINGS: The lidding machine operator abdominal radiograph demonstrates scattered air and stool within the colon. No marked bowel distention. The esophagus distends normally. No evidence of strictures. No evidence of intrinsic or extrinsic masses. The mucosa appears intact. Tiny sliding-type hiatal hernia. The stomach appears normal. No gastroesophageal reflux demonstrated during the exam. Small diverticulum within the distal second portion of the duodenum. Duodenum otherwise appears normal. Opacified small bowel appears normal. Procedure Note Gomez Johnston MD - 07/18/2017 HISTORY: Pain, history of a hiatal hernia. EXAM: Biphasic upper GI series. COMPARISON: CT abdomen/pelvis 08/07/2009. Report from upper GI seriesdated 12/14/2004 reviewed. FINDINGS: The lidding machine operator abdominal radiograph demonstrates scattered air and stool withinthe colon. No marked bowel distention. The esophagus distends normally.No evidence of strictures. No evidence of intrinsic or extrinsic masses.The mucosa appears intact. Tiny sliding-type hiatal hernia. The stomach appears normal. No gastroesophageal reflux demonstratedduring the exam. Small diverticulum within the distal second portion of the duodenum.Duodenum otherwise appears normal. Opacified small bowel appears normal. IMPRESSION: Tiny sliding-type hiatal hernia. Small duodenal diverticulum. Both arelikely clinically insignificant. No other significant abnormalities onupper GI series. FLUOROSCOPY TIME: 1 min. 44 sec; 26 IMAGES/FRAMES POS - [id number] October Maria R SOTELO IMG FL MISC Final Result documented in this encounter Visit Diagnoses Diagnosis Chronic heartburn Chest pain, unspecified type Chronic heartburn Chest pain, unspecified type documented in this encounter Care Teams Traffic Engineering Technician Relationship Specialty Start Date End Date Maria ROctoberDEEPAK [address] [place] [address] PCP - General Unknown Provider Specialty 06/13/1707/13/18 Pepe Munoz DO [address] [place] [address] PCP - General Internal Medicine 07/14/18 documented as of this encounter Additional Source Comments The information contained in this document represents components of the legal health record. It is not the complete legal health record.[facility]
--- OUTSIDE RECORDS SUMMARY | 2025-05-07 08:41 | XMS_ITS | Encounter Summary ---
Author Organization [facility] Address [address] [facility] [place] [address] Phone Care Team Providers Care Pipe Organ Builder Name Role Phone Pepe Munoz Primary Care Provider Encounter Details Date Type Department Care Team (Late st Contact Info) Description 08/23/2020 Procedure Pass Echo Lab [address] [place] [address] Social History Tobacco Use Types Packs/Day Years Used Date Smoking Tobacco: Never Smokeless Tobacco: Never Sex and Gender Information Value Date Recorded Sex Assigned at Not on file Legal Sex Male 9:37 PM EDT Gender Identity Not on file Sexual Orientation Not on file documented as of this encounter Plan of Treatment Upcoming Encounters Date Type Department Care Team (Late st Contact Info) Description 01/24/2025 Procedure Pass Echo Lab [address] [place] [address] 07/26/2025 2:00 PM EST Appointment Echo Lab [address] [place] [address] Janette Johnson DNP [address] [facility], [address] [address] 01/24/2026 2:30 PM EDT Office Visit [facility] [address] [place] [address] 3rd Floor, [address] [address] Janette Johnson DNP [address] [place] [address], [address] [place] [address] [email or web address] documented as of this encounter Visit Diagnoses Not on filedocumented in this encounter Care Teams Pipe Organ Builder Relationship Specialty Start Date End Date Pepe Munoz DO [email or web address] PCP - General Internal Medicine 07/14/18 documented as of this encounter Additional Source Comments The information contained in this document represents components of the legal health record. It is not the complete legal health record.[facility]
--- OUTSIDE RECORDS SUMMARY | 2025-05-07 08:41 | XMS_ITS | Encounter Summary ---
Author Organization [facility] Address [address] [address] Phone Care Team Providers Care Central Sterile Technician Name Role Phone Pepe Munoz Primary Care Provider [phone] Encounter Details Date Type Department Care Team (Late st Contact Info) Description 01/24/2024 Procedure Pass Echo Lab [address] [place] [address] Social History Tobacco Use Types Packs/Day Years [...] Info) Description 01/24/2025 Procedure Pass Echo Lab [address] [place] [address] 07/26/2025 2:00 PM EST Appointment Echo Lab [address] [place] [address] Janette Johnson, DNP [address] [facility], [address] [place] [address] [email or web address] 01/24/2026 2:30 PM EDT Office Visit [facility] [address] [facility] 3rd Floor, [address] [place] [address] Janette Johnson, SUMMER [address] [facility], [address] [place] [address] documented as of this encounter Visit Diagnoses Not on filedocumented in this encounter Care Teams Central Sterile Technician Relationship Specialty Start Date End Date Pepe Munoz DO PCP - General Internal Medicine 07/14/18 documented as of this encounter Additional Source Comments The information contained in this document represents components of the legal health record. It is not the complete legal health record.[facility]
--- OUTSIDE RECORDS SUMMARY | 2025-05-07 08:42 | XMS_ITS | Encounter Summary ---
Author Organization [facility] Address [address] [address] Phone Care Team Providers Care Baker Name Role Phone Pepe Munoz Primary Care Provider [phone] Encounter Details Date Type Department Care Team (Late st Contact Info) Description 12/23/2022 Procedure Pass Echo Lab [address] [place] [address] Social History Tobacco Use Types Packs/Day Years [...] Info) Description 01/24/2025 Procedure Pass Echo Lab [address] [place] [address] 07/26/2025 2:00 PM EST Appointment Echo Lab [address] [place] [address] Janette Johnson, DNP [address] [facility], [address] [place] [address] 01/24/2026 2:30 PM EDT Office Visit [facility] [address] [facility] 3rd Floor, [address] [place] [address] Janette Johnson, SUMMER [address] [facility], [address] [place] [address] documented as of this encounter Visit Diagnoses Not on filedocumented in this encounter Care Teams Baker Relationship Specialty Start Date End Date Pepe Munoz DO PCP - General Internal Medicine 07/14/18 documented as of this encounter Additional Source Comments The information contained in this document represents components of the legal health record. It is not the complete legal health record.[facility]
--- OUTSIDE RECORDS SUMMARY | 2025-05-07 08:42 | XMS_ITS | Encounter Summary ---
Author Organization [facility] Address [address] [facility] [address] [place] [address] Phone Care Team Providers Care Microbiological Analyst Name Role Phone Pepe Munoz DO Primary Care Provider [phone] Encounter Details Date Type Department Care Team (Late Contact Info) Description 07/20/2018 Ancillary Orders Virtual Department 30 [place] [address] ePpe Munoz DO [address] [facility] [place] [address] [place] [address] Palpitations Social History Tobacco Use Types Packs/Day Years Used Date Smoking Tobacco: Never Assessed Sex and Gender Information Value Date Recorded Sex Assigned at Not on file Legal Sex Male 9:37 PM EDT Gender Identity Not on file Sexual Orientation Not on file documented as of this encounter Plan of Treatment Upcoming Encounters Date Type Department Care Team (Late Contact Info) Description 01/24/2025 Procedure Pass Echo Lab [address] [place] [address] 07/26/2025 2:00 PM EST Appointment Echo Lab [address] [place] [address] Janette Johnson, SUMMER [address] [facility], [address] [place] [address] 01/24/2026 2:30 PM EDT Office Visit [facility] [address] [place] [address] 3rd Floor, [address] [place] [address] Janette Johnson, DNP [address] [facility], [email or web address] [address] [place] [address] [email or web address] documented as of this encounter Results * Holter Monitor 24 Hours (07/25/2018 4:13 PM EST) Total Beats 110,578 [facility] Ventricular Ectopy Total Beats 1 [facility] Ventricular Ectopy Single Beats 1 [facility] Ventricular Pair 0 [facility] Ventricular Runs 0 [facility] Supraventricular Total Beats 6 [facility] Supraventricular Ectopic Single Beats 6 [facility] Supraventricular Pairs 0 [facility] Supraventricular Runs 0 [facility] Mean Heart Rate 77 BPM [facility] Maximum Heart Rate 118 BPM [facility] Minimum Heart Rate 50 BPM [facility] Longest RR 1.224 S [facility] Anatomical Region Laterality Modality Heart Other 07/24/2018 9:58 AM EST 07/25/2018 4:09 PM EST Narrative 07/28/2018 11:05 AM EST 24-hour monitor: Baseline rhythm is sinus with a minimum heart rate of 50 maximum 118 average 77 bpm. No long pauses present. One PVC present 6 PACs present. Patient event button was pressed several times, and all of these were during sinus rhythm and sinus tachycardia. Impression: Normal 24-hour monitor. Patient event button pressed during sinus rhythm. Holter Monitor Main Form Hookup date: 07/24/2018 Scan date: 07/25/2018 Mean HR: 77 bpm Max HR: at 09:20 on 07/25/2018 118 bpm Min HR: at 03:00 on 07/25/2018 50 bpm Ventricular ectopic beats - total: 1 Ventricular ectopic beats - singles: 1 Ventricular ectopic beats - pairs: 0 Ventricular ectopic beats - runs: 0 Supraventricular ectopic beats - total: 6 Supraventricular ectopic beats - singles: 6 Supraventricular ectopic beats - pairs: 0 Supraventricular ectopic beats - runs: 0 Longest R-R interval at 03:00 on 07/25/20181.224 sec us Pepe Mejia Alexander KHAN CV CARDIAC SERVICES ORDERABLES F inal Result documented in this encounter Visit Diagnoses Diagnosis Palpitations Palpitations documented in this encounter Care Teams Microbiological Analyst Relationship Specialty Start Date End Date Pepe Munoz DO [email or web address] PCP - General Internal Medicine 07/14/18 documented as of this encounter Additional Source Comments The information contained in this document represents components of the legal health record. It is not the complete legal health record.[facility]
--- OUTSIDE RECORDS SUMMARY | 2025-05-07 08:42 | XMS_ITS | Encounter Summary ---
Author Organization [facility] Address [address] [facility] [address] [place] [address] Phone Care Team Providers Care Shell Maker Lockstitch Name Role Phone Pepe Munoz DO Primary Care Provider [phone] Encounter Details Date Type Department Care Team (Late Contact Info) Description 07/19/2018 Ancillary Orders Virtual Department 30 [place] [address] Pepe Munoz DO [address] [facility] [place] [address] [place] [address] Atypical chest pain Social History Tobacco Use Types Packs/Day Years [...] Info) Description 01/24/2025 Procedure Pass Echo Lab [address] [place] [address] 07/26/2025 2:00 PM EST Appointment Echo Lab [address] [place] [address] Janette Johnson, SUMMER [address] [facility], [address] [place] [address] 01/24/2026 2:30 PM EDT Office Visit [facility] [address] [place] [address] 3rd Floor, [address] [place] [address] Janette Johnson, DNP [address] [facility], [address] [place] [address] [email or web address] documented as of this encounter Results * XR CHEST PA AND LATERAL 2 VIEWS (07/19/2018 4:13 PM EST) Anatomical Region Laterality Modality Chest Radiographic Ivory ging 07/19/2018 4:38 PM EST Impressions 07/19/2018 4:39 PM EST Negative chest radiographs. POS - [id number] Narrative 07/19/2018 4:39 PM EST HISTORY: Atypical chest pain. COMPARISON: Chest x-ray 08/17/2016 FINDINGS: PA and lateral views of the chest obtained. The lungs are clear. No evidence of pleural effusions or pneumothorax. Great vessel and cardiomediastinal contours are stable and within normal limits. Procedure Note Gomez Johnston MD - 07/19/2018 HISTORY: Atypical chest pain. COMPARISON: Chest x-ray 08/17/2016 FINDINGS: PA and lateral views of the chest obtained. The lungs are clear. No evidence of pleural effusions or pneumothorax.Great vessel and cardiomediastinal contours are stable and within normallimits. IMPRESSION: Negative chest radiographs. POS - [id number] Pepe Munoz DO IMG XR CHEST Final Result documented in this encounter Visit Diagnoses Diagnosis Atypical chest pain Other chest pain Atypical chest pain Other chest pain documented in this encounter Care Teams Shell Maker Lockstitch Relationship Specialty Start Date End Date Pepe Munoz DO [email or web address] PCP - General Internal Medicine 07/14/18 documented as of this encounter Additional Source Comments The information contained in this document represents components of the legal health record. It is not the complete legal health record.[facility]
--- OUTSIDE RECORDS SUMMARY | 2025-05-07 08:42 | XMS_ITS | Encounter Summary ---
Author Organization [facility] Address [address] [address] Phone Care Team Providers Care Aerospace Physiological Technician Name Role Phone Pepe Munoz Primary Care Provider [phone] Reason for Visit * Reason Comments Medication Refill Encounter Details Date Type Department Care Team (Late st Contact Info) Description 05/01/2025 Refill [facility] [address] [place] [address] 3rd Floor, [address] [place] [address] Hosea Isaac MD [address] [place] [address], [address] [address] [email or web address] Medication Refill Social History Tobacco Use Types Packs/Day Years [...] on file documented as of this encounter Progress Notes * America Calderon MA - 05/01/2025 11:17 AM EDT RX REVIEWED documented in this encounter Plan of Treatment Upcoming Encounters Date Type Department Care Team (Late st Contact Info) Description 01/24/2025 Procedure Pass Echo Lab [address] [place] [address] 07/26/2025 2:00 PM EST Appointment Echo Lab [address] [place] [address] Janette Johnson DNP [address] [place] [address], [address] [place] [address] 01/24/2026 2:30 PM EDT Office Visit [facility] [address] 3rd Floor, [address] [place] [address] Janette Johnson DNP [address] [place] [address], [address] [address] documented as of this encounter Visit Diagnoses Diagnosis Medication refill Issue of repeat prescriptions documented in this encounter Care Teams Aerospace Physiological Technician Relationship Specialty Start Date End Date Pepe Munoz DO PCP - General Internal Medicine 07/14/18 documented as of this encounter Additional Source Comments The information contained in this document represents components of the legal health record. It is not the complete legal health record.[facility]
--- OUTSIDE RECORDS SUMMARY | 2025-05-07 08:42 | XMS_ITS | Encounter Summary ---
Author Organization [facility] Address [address] [facility] [address] [place] [address] Phone Care Team Providers Care Cottrell Operator Name Role Phone Pepe Munoz DO Primary Care Provider [phone] Encounter Details Date Type Department Care Team (Late Contact Info) Description 08/08/2019 Transcribe Orders Virtual Department 30 [place] [address] Pepe Munoz DO [address] [facility] [place] [address] [place] [address] Palpitations (Primary Dx) Social History Tobacco Use Types Packs/Day Years [...] Description 01/24/2025 Procedure Pass Echo Lab [address] [place] [address] 07/26/2025 2:00 PM EST Appointment Echo Lab [address] [place] [address] Janette Johnson, SUMMER [address] [facility], [address] [place] [address] 01/24/2026 2:30 PM EDT Office Visit [facility] [address] [facility] 3rd Floor, [address] [place] [address] Janette Johnson, SUMMER [address] [facility], [address] [place] [address] [email or web address] documented as of this encounter Results * Event Monitor Looping up to 30 Days (09/12/2019 3:39 PM EST) Anatomical Region Laterality Modality Heart Other Narrative 09/12/2019 3:54 PM EST 30-day monitor: 510.5 hours recorded. The baseline rhythm is sinus with a minimum heart rate of 46, maximum 170, average 76 bpm. There are no pauses longer than 2.5 seconds. There are rare PVCs present. Automatic detection demonstrated that AV esteban Wenckebach occurred during hours of sleep. There were 2 patient activations after the baseline activation, both occurred during sinus rhythm with no symptoms selected. Impression: 30-day monitor demonstrates sinus rhythm with sinus bradycardia and AV esteban Wenckebach during hours of sleep. Patient activations during sinus rhythm. Symptoms reported. us Pepe A Bigda DO CV CARDIAC SERVICES ORDERABLES F inal Result * ECG 12-LEAD (08/10/2019 2:49 PM EST) Ventricular Rate EKG/MIN 72 BPM [facility] Atrial Rate 72 BPM [facility] WA Interval 176 ms [facility] QRS Duration 104 ms [facility] QT Interval 382 ms [facility] QTC Interval 418 ms [facility] P Dolph 46 degrees [facility] R Wave Dolph 70 degrees [facility] T Wave Dolph 29 degrees [facility] 08/10/2019 2:49 PM EST 08/12/2019 10:51 AM EST Narrative [facility] - 08/12/2019 10:52 AM EST Normal sinus rhythm Normal ECG When compared with ECG of 17-AUG-2016 13:36, No significant change was found Confirmed by ADEOLA RALPH MD ([id number]) on 08/12/2019 10:51:59 AM us Pepe A Bigda DO ECG ORDERABLES Final Result [facility] documented in this encounter Visit Diagnoses Diagnosis Palpitations- Primary Palpitations Palpitations documented in this encounter Care Teams Cottrell Operator Relationship Specialty Start Date End Date Pepe Munoz DO [email or web address] PCP - General Internal Medicine 07/14/18 documented as of this encounter Additional Source Comments The information contained in this document represents components of the legal health record. It is not the complete legal health record.[facility]
--- OUTSIDE RECORDS SUMMARY | 2025-05-07 08:43 | XMS_ITS | Encounter Summary ---
Author Organization [facility] Address [address] [address] Phone Care Team Providers Care Toolmaker Grade Three Name Role Phone Pepe Munoz Primary Care Provider [phone] Encounter Details Date Type Department Care Team (Late st Contact Info) Description 03/02/2024 Procedure Pass [facility], Ct Scan - [address] [address] Social History Tobacco Use Types Packs/Day Years [...] Info) Description 01/24/2025 Procedure Pass Echo Lab [address] [place] [address] 07/26/2025 2:00 PM EST Appointment Echo Lab [address] [place] [address] Janette Johnson, [facility] [address] [facility], [address] [place] [address] 01/24/2026 2:30 PM EDT Office Visit [facility] [address] [facility] 3rd Floor, [address] [place] [address] Janette Johnson, SUMMER [address] [facility], [address] [place] [address] documented as of this encounter Visit Diagnoses Not on filedocumented in this encounter Care Teams Toolmaker Grade Three Relationship Specialty Start Date End Date Pepe Munoz DO PCP - General Internal Medicine 07/14/18 documented as of this encounter Additional Source Comments The information contained in this document represents components of the legal health record. It is not the complete legal health record.[facility]
--- OUTSIDE RECORDS SUMMARY | 2025-05-07 08:43 | XMS_ITS | Encounter Summary ---
Author Organization [facility] Address [address] [place] [id number] Phone Care Team Providers Care Non Destructive Evaluation Technician Name Role Phone EwaPepe ruiz Roberto KHAN Primary Care Provider [phone] Reason for Referral * MRI/CAT Scan - Closed Specialty Diagnoses / Procedures Referred By Contac t Referred To Contact Radiology Diagnoses Other nonspecific abnormal finding of lung field Procedures CT Chest CHG DIAGNOSTIC COMPUTED TOMOGRAPHY THORAX W/CONTRAST Reva Corona PA [address] [facility] [place] [address] [place] [address] Phone: tel: fax: Referral ID Status Reason Start Date Expiration Date Visits Re quested Visits Authorized [id number] Closed 03/02/2024 04/29/2024 1 1 Encounter Details Date Type Department Care Team (Latest Contact Info) Description 03/02/2024 Transcribe Orders Virtual Department [address] [place] [address] Reva Corona PA [address] [facility] [place] [address] [place] [address] Other nonspecific abnormal finding of lung field (Primary Dx) Social History Tobacco Use Types [...] Description 01/24/2025 Procedure Pass [facility] [address] [place] [address] 07/26/2025 2:00 PM EST Appointment Echo [facility] [address] [place] [address] Janette Johnson DNP [address] [place] [address], [address] [address] 01/24/2026 2:30 PM EDT Office Visit [facility] [address] [place] [address] Dr [address] Floor, [address] [place] [id number] Janette Johnson DNP [address] [place] [address], [address] [address] documented as of this encounter Results * CT CHEST WITH CONTRAST (04/12/2024 1:14 PM EDT) MGB IMG RECOMMENDATION COMMENT pulmonary nodules [facility] Anatomical Region Laterality Modality Chest Computed Tomogra phy 04/16/2024 9:23 AM EDT Impressions 04/16/2024 9:39 AM EDT 1. Scattered 2 to 3 mm pulmonary nodules bilaterally are stable compared to 01/03/2024. 2. No new or enlarging pulmonary nodules. 3. Probable fatty liver. RECOMMEND: CT chest between 12 months and 13 months for pulmonary nodules. Follow-up recommendations were communicated and documented using a closed loop communication system. Narrative 04/16/2024 9:[address] CHEST WITH CONTRAST Referring clinician's provided indication for this examination in [facility]: Outside Radiology Order; lung nodules TECHNIQUE: Multidetector CT of the chest was performed with intravenous contrast using tailored dose modulation techniques. COMPARISON: 01/03/2024 FINDINGS: Devices/Tubes/Lines: None. Lungs: The central airways are patent. Stable atelectasis/scarring in the lung bases. Scattered 2 to 3 mm pulmonary nodules are again noted (series 5, images 224, 233, 250, 261, 295). No new or enlarging pulmonary nodules. Pleura: No pleural effusion or pneumothorax. Mediastinum: No suspicious thyroid nodules. No coronary calcification. No pericardial effusion. Lymph Nodes: No enlarged supraclavicular, axillary, mediastinal, or hilar lymph nodes. Upper Abdomen: Splenic calcifications again noted. Diffuse low-attenuation liver suggests fatty. No acute abnormality in the visualized portions of the upper abdomen. Chest Wall: No acute abnormality. Bones: No destructive bone lesions. Procedure Note Ishmael Olguin MD - 04/16/2024 CT CHEST WITH CONTRAST Referring clinician's provided indication for this examination in [facility]:Outside Radiology Order; lung nodules TECHNIQUE: Multidetector CT of the chest was performed with intravenouscontrast using tailored dose modulation techniques. COMPARISON: 01/03/2024 FINDINGS: Devices/Tubes/Lines: None. Lungs: The central airways are patent. Stable atelectasis/scarring in thelung bases. Scattered 2 to 3 mm pulmonary nodules are again noted (series 5, [id number], 233, 250, 261, 295). No new or enlarging pulmonary nodules. Pleura: No pleural effusion or pneumothorax. Mediastinum: No suspicious thyroid nodules. No coronary calcification. Nopericardial effusion. Lymph Nodes: No enlarged supraclavicular, axillary, mediastinal, or hilarlymph nodes. Upper Abdomen: Splenic calcifications again noted. Diffuse low-attenuationliver suggests fatty. No acute abnormality in the visualized portions ofthe upper abdomen. Chest Wall: No acute abnormality. Bones: No destructive bone lesions. IMPRESSION: 1. Scattered 2 to 3 mm pulmonary nodules bilaterally are stable comparedto 01/03/2024. 2. No new or enlarging pulmonary nodules. 3. Probable fatty liver. RECOMMEND: CT chest between 12 months and 13 months for pulmonarynodules. Follow-up recommendations were communicated and documented using a closedloop communication system. Reva CODY IMG CT CHEST Final Resul t documented in this encounter Visit Diagnoses Diagnosis Other nonspecific abnormal finding of lung field- Primary Other nonspecific abnormal finding of lung field documented in this encounter Care Teams Non Destructive Evaluation Technician Relationship Specialty Start Date End Date Pepe Munoz DO PCP - General Internal Medicine 07/14/18 documented as of this encounter Additional Source Comments The information contained in this document represents components of the legal health record. It is not the complete legal health record.[facility]
[2025-05-08 07:59] LABS: Hemoglobin A1C 111.6857 umol/L; Total Hemoglobin (HGBA1C) 2554.5386 umol/L
== END 2025-05-07 08:14 | disposition home or self-care (01) ==
LOC: HO.MANLDS 08:13
PROVIDERS: Visit Provider Internal Medicine
DX: Z13.1 Encounter for screening for diabetes mellitus (principal); E78.1 Pure hyperglyceridemia
CPT/HCPCS: 36415; 83036